=== PATIENT | female | born 1950 | race Caucasian/White ===

== ENCOUNTER → 2017-04-21 | Outpatient (CLI) | payer BC ==
[~2017-04-21] MED LIST: ASPI81TA28 PO; ATOR10TA82 PO; CALC600T9 PO; ESTVR2 VAGRING; FSMD/70 PO; LISI-461 PO; MULTTAB58 PO; RSTOPS OP; TAMS0.4C38 PO
--- NOTE | 2017-04-21 14:07 | MAMMOGRAPHY REPORT ---
BILATERAL DIGITAL SCREENING MAMMOGRAM WITH CAD: 04/21/2017 CLINICAL HISTORY: Routine screening. Patient has no complaints. TECHNIQUE: Current study was also evaluated with a Computer Aided Detection (CAD) system. COMPARISON: Comparison is made to exams dated: 04/19/2016 mammogram, 04/16/2015 mammogram, 04/12/2014 mammogram, 04/10/2013 mammogram, 04/05/2012 mammogram, and 04/02/2011 mammogram - [facility] enter. BREAST COMPOSITION: The tissue of both breasts is heterogeneously dense, which may obscure small ma sses. FINDINGS: There has been no significant interval change compared to prior exams. No suspicious mass es, calcifications, or areas of architectural distortion are noted in either breast. Bilateral mohsen gn-appearing calcifications are not significantly changed. 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 IMPRESSION: ACR BI-RADS CATEGORY 2: BENIGN There is no mammographic evidence of malignancy. A 1 year screening mammogram is recommended. The p atient will receive written notification of the results. Approximately 10% of breast cancers are not detected with mammography. A negative mammographic repor t should not delay biopsy if a clinically suggestive mass is present. Lamar Andersen M.D. /:04/21/2017 07:55:55 Electrical Prospect[employer] Observer: Yolanda SHAH(R)(M), [facility] letter sent: Normal 1/2 BI-RADS Code: ACR BI-RADS Category 2: Benign
== END | disposition home or self-care (01) ==
LOC: C.MAMM 07:31
PROVIDERS: ATTEND Obstetrics & Gynecology
DX: Z12.31 Encounter for screening mammogram for malignant neoplasm of breast (principal)